=== PATIENT | female | born 1980 | race Two or more races ===

== ENCOUNTER 2019-08-17 14:00 | Emergency (ER) | payer OTHER ==
[~2019-08-17] VITALS: Ht 162.6 cm; Wt 55.8 kg
[2019-08-17] MEDS ORDERED: MORPHINE SULFATE INJ 2 MG/ML DISP.SYRIN IM ONE (14:30)
[2019-08-17] MEDS ORDERED: DEXAMETHASONE SOD PHOSPHATE 10 MG/ML VIAL IM ONE (14:30)
[2019-08-17] MEDS ORDERED: KETOROLAC TROMETHAMINE INJ 30 MG/ML VIAL IM ONE (14:30)
[2019-08-17] MEDS ORDERED: MORPHINE SULFATE INJ 2 MG/ML DISP.SYRIN ONE (14:35)
[2019-08-17] MEDS ORDERED: DEXAMETHASONE SOD PHOSPHATE 10 MG/ML VIAL ONE (14:36)
--- NOTE | 2019-08-17 14:44 | NUR ---
Patient awake alert crying moaning for pain provider @ bedside with order given
[2019-08-17] MEDS ORDERED: KETOROLAC TROMETHAMINE INJ 30 MG/ML VIAL ONE (14:53)
--- NOTE | 2019-08-17 17:05 | NUR ---
Patient awake alert DC home instruction given Fatoumata Harris CNA for full time staff interpreter agrees to follow up PMD in 2 days
[2019-08-17 17:09] VITALS: BP 123/67
--- NOTE | 2019-08-17 17:09 | NUR ---
Patient discharged to home in stable condition. Written and verbal after care instructions given. Patient verbalizes understanding of instruction.
== END 2019-08-17 17:10 | disposition home or self-care (01) ==
LOC: ER 14:02
DX: M54.42 Lumbago with sciatica, left side (principal)
CPT/HCPCS: 72131; 84703; 96372 ×2; 99284; J1100; J1885; J2270